=== PATIENT | male | born 1960 | race Caucasian/White ===

== ENCOUNTER 2024-05-26 23:41 | Inpatient (IN) | payer SELFPAY ==
[~2024-05-26] VITALS: Ht 170.2 cm; Wt 77.1 kg
[2024-05-27] VITALS (26 sets, daily range): BP systolic 40–70; BP diastolic 19–45; TEMP 92.2–95.5; O2SAT 86–100
[2024-05-27] MEDS ORDERED: CEFTRIAXONE /D5W 50ML IVPB **ER PYXIS IV ONE (00:08)
[2024-05-27] MEDS: ONDANSETRON 4 MG/2 ML VIAL IV ONE (00:08)
[2024-05-27] MEDS ORDERED: PANTOPRAZOLE SODIUM 40 MG VIAL ONE (00:08)
[2024-05-27] MEDS ORDERED: ONDANSETRON 4 MG/2 ML VIAL ONE (00:08)
[2024-05-27] MEDS: CEFTRIAXONE 1 G in IV DEXTROSE 5% 50 ML IV ONE (00:08)
[2024-05-27] MEDS: IV NORMAL SALINE 1000 ML BAG IV ONE (00:08)
[2024-05-27] MEDS: PANTOPRAZOLE SODIUM 40 MG VIAL IV ONE (00:08)
[2024-05-27] MEDS ORDERED: OCTREOTIDE ACETATE 50 MCG/1 ML ML ONE (00:09)
[2024-05-27 00:19] LABS: BASOPHILS % (AUTO) 0.4 % (0.0-2.0); EOSINOPHILS % (AUTO) 0.1 % (0.0-7.0); LYMPHOCYTES # (AUTO) 1.2 K/uL (0.8-4.8); LYMPHOCYTES % (AUTO) 10.2 % (20.5-51.5); MEAN CORPUSCULAR HEMOGLOBIN 43.6 uug (23.8-33.4); MEAN CORPUSCULAR HGB CONC 32 g/dL (32.5-36.3); MEAN CORPUSCULAR VOLUME 137.6 fL (73.0-96.2); MONOCYTES # (AUTO) 1.1 K/uL (0.1-1.30); MONOCYTES % (AUTO) 9.5 % (0.0-11.0); NEUTROPHILS # (AUTO) 9.6 K/uL (1.8-8.9); NEUTROPHILS % (AUTO) 79.8 % (38.5-71.5); PLATELET COUNT (AUTO) 102 K/uL (152-348); RED CELL DISTRIBUTION WIDTH 22.2 % (12.1-16.2)
[2024-05-27 00:34] LABS: ALANINE AMINOTRANSFERASE 47 U/L (16-63); ALBUMIN 1.8 g/dL (3.4-5.0); ALKALINE PHOSPHATASE 142 U/L (50-136); ASPARTATE AMINOTRANSFERASE 150 U/L (15-37); BILIRUBIN,DIRECT 2.6 mg/dL (0.0-0.2); BILIRUBIN,TOTAL 3.8 mg/dL (0.2-1.0); CALCIUM 7.5 mg/dL (8.5-10.1); CARBON DIOXIDE 10 mmol/L (21-32); CHLORIDE 84 mmol/L (98-107); CREATININE 1.1 mg/dL (0.6-1.3); GLUCOSE 89 mg/dL (74-106); POTASSIUM 3.6 mmol/L (3.5-5.1); SODIUM SERUM 125 mmol/L (136-145); UREA NITROGEN, BLOOD 18 mg/dL (7-18)
[2024-05-27] MEDS ORDERED: THIAMINE HCL 200 MG/2 ML VIAL ONE (00:39)
[2024-05-27] MEDS: THIAMINE HCL 200 MG/2 ML VIAL IV ONE (00:41)
[2024-05-27] MEDS: OCTREOTIDE ACETATE 50 MCG/1 ML ML IV ONE (00:42)
[2024-05-27 00:53] LABS: MAGNESIUM 2.2 mg/dL (1.8-2.4)
[2024-05-27 01:00] LABS: LACTIC ACID 20.6 mmol/L (0.4-2.0)
[2024-05-27] MEDS ORDERED: ETOMIDATE 20 MG/10 ML VIAL ONE (01:01)
[2024-05-27] MEDS ORDERED: NOREPINEPHRINE 8MG/NS 250ML 250 ML IV ONE ×6 (01:17→08:18)
[2024-05-27] MEDS ORDERED: PROPOFOL 100 ML ONE (01:18)
[2024-05-27] MEDS: PROPOFOL 100 ML IV PRN (01:23)
[2024-05-27] MEDS: ETOMIDATE 20 MG/10 ML VIAL IV ONE (01:30)
[2024-05-27] MEDS: NOREPINEPHRINE 8MG/NS 250ML 250 ML IV PRN (01:33)
[2024-05-27 01:45] LABS: LIPASE 195 U/L (16-77)
[2024-05-27 02:43] LABS: ABG BASE EXCESS -23.9 mmol/L (-2.0-3.0); ABG HCO3 6.4 mmol/L (21.0-28.0); ABG PCO2 35.8 mmHg (35.0-48.0); ABG PH 6.868 (7.350-7.450); ABG PO2 131.6 mmHg (83.0-108.0); ABG SITE LEFT FEMORAL; ABG TOTAL HEMOGLOBIN < 4.9 G/dL (13.5-17.5); AaDO2 95.6 mmHg; COHb 0.3 % (0.5-1.5); MetHb 0.9 % (0.0-1.5); O2Hb 93.6 % (94.0-98.0); VT, ABG 500 mL
[2024-05-27] MEDS ORDERED: SODIUM BICARBONATE 8.4% 50 MEQ/50 ML DISP.SYRIN IV ONE ×2 (03:06→03:18)
[2024-05-27] MEDS: SODIUM BICARBONATE 8.4% 50 MEQ/50 ML DISP.SYRIN IV ONE (03:07)
[2024-05-27] MEDS: SODIUM BICARBONATE 8.4% 50 MEQ/50 ML VIAL IV ONE (03:07)
[2024-05-27 03:09] LABS: RED BLOOD CELL COUNT(AUTO) 0.86 MIL/uL (4.06-5.63)
[2024-05-27 03:10] LABS: DIFFERENTIAL COMMENT 1; HEMATOCRIT 11.8 % (36.7-47.1); HEMOGLOBIN 3.8 g/dL (12.5-16.3)
[2024-05-27] MEDS ORDERED: DEXTROSE IV ONE (03:21)
[2024-05-27] MEDS ORDERED: [UNRECOGNIZED DRUG - OTHER] IV ONE (03:21)
[2024-05-27] MEDS: POTASSIUM CHLORIDE 20 MEQ in IV D5W 1000ML 1,000 ML IV ONE (03:22)
[2024-05-27] MEDS ORDERED: IV DEXTROSE 5% +20 MEQ KCL 1,000 ML IV ONE (03:22)
[2024-05-27 03:39] LABS: BAND % (MANUAL) 8 % (0-10); EOSINOPHILS % (MANUAL) 1 % (0-8); LYMPHOCYTES % (MANUAL) 14 % (20-40); MONOCYTES % (MANUAL) 6 % (2-10); NEUTROPHILS % (MANUAL) 71 % (42-75)
[2024-05-27] MEDS ORDERED: LORAZEPAM 2 MG/1 ML VIAL ONE (03:41)
[2024-05-27] MEDS: LORAZEPAM 2 MG/1 ML VIAL IV ONE (03:52)
[2024-05-27] MEDS ORDERED: PHENYLEPHRINE 10 MG/1 ML VIAL ONE ×2 (05:45→05:58)
[2024-05-27] MEDS ORDERED: VASOPRESSIN 20 UNIT/ML VIAL ONE ×2 (05:45→05:50)
[2024-05-27] MEDS: NORMAL SALINE IV PRN (06:00)
[2024-05-27] MEDS: PHENYLEPHRINE IV 50 MG in IV NORMAL SALINE 245 ML IV PRN (06:00)
[2024-05-27] MEDS: VASOPRESSIN IV PRN (06:00)
[2024-05-27] MEDS: PHENYLEPHRINE IV 20 MG in IV DEXTROSE 5% 250 ML IV ONE ×3 (06:00)
[2024-05-27] MEDS ORDERED: PANTOPRAZOLE SODIUM IV 40 MG in IV DEXTROSE 5% 100 ML IV SCH (06:30)
[2024-05-27] MEDS ORDERED: ACETAMINOPHEN 650 MG SUPP.RECT RC PRN (06:30)
[2024-05-27] MEDS ORDERED: ONDANSETRON 4 MG/2 ML VIAL IV PRN (06:30)
[2024-05-27] MEDS ORDERED: OCTREOTIDE ACETATE DRIP 1,250 MCG in IV NORMAL SALINE 250 ML IV ONE (06:30)
[2024-05-27 08:16] LABS: HEMATOCRIT 14.1 % (36.7-47.1); HEMOGLOBIN 4.4 g/dL (12.5-16.3)
[2024-05-27 08:27] LABS: CALCIUM 6.5 mg/dL (8.5-10.1); CREATININE 1.2 mg/dL (0.6-1.3); POTASSIUM 5.2 mmol/L (3.5-5.1)
[2024-05-27] MEDS ORDERED: PHENYLEPHRINE IV 100 MG in IV NORMAL SALINE 240 ML IV PRN (08:45)
[2024-05-27] MEDS: PIPERACILLIN SODIUM/TAZOBACTAM 3.375 G in IV DEXTROSE 5% 100 ML IV SCH (08:53)
[2024-05-27] MEDS: PANTOPRAZOLE SODIUM IV 40 MG in IV DEXTROSE 5% 100 ML IV SCH (10:01)
[2024-05-27] MEDS: OCTREOTIDE ACETATE DRIP 500 MCG in IV NORMAL SALINE 99 ML IV SCH (10:14)
[2024-05-27] MEDS: SODIUM BICARBONATE 8.4% 150 MEQ in IV D5 1/2 NS 1000 ML 1,000 ML IV PRN (11:04)
[2024-05-27 11:06] LABS: ABG HCO3 4.6 mmol/L (21.0-28.0); ABG PH 6.808 (7.350-7.450); ABG PO2 107.4 mmHg (83.0-108.0); ABG SITE RIGHT RADIAL; ABG TOTAL HEMOGLOBIN 5.2 G/dL (13.5-17.5); AaDO2 91.3 mmHg; COHb 0.1 % (0.5-1.5); MetHb 0.8 % (0.0-1.5); O2Hb 92.8 % (94.0-98.0); VT, ABG 550 mL
[2024-05-27] MEDS ORDERED: VASOPRESSIN 40 UNIT in IV NORMAL SALINE 40 ML IV PRN (11:15)
[2024-05-27] MEDS: NOREPINEPHRINE BITARTRATE 32 MG in IV NORMAL SALINE 218 ML IV PRN (11:39)
[2024-05-27] MEDS ORDERED: PIPERACILLIN SODIUM/TAZOBACTAM 3.375 G in IV DEXTROSE 5% 50 ML IV SCH (12:00)
[2024-05-27 15:42] LABS: CALCIUM 6.1 mg/dL (8.5-10.1); CREATININE 1.4 mg/dL (0.6-1.3); POTASSIUM 5.7 mmol/L (3.5-5.1)
[2024-05-27 16:19] LABS: HEMATOCRIT 23.1 % (36.7-47.1)
[2024-05-27 16:25] LABS: HEMOGLOBIN 6.6 g/dL (12.5-16.3)
[2024-05-27 18:46] LABS: HEMOGLOBIN 6.8 g/dL (12.5-16.3)
== END 2024-05-27 20:55 | DRG 377 ==
LOC: ER 23:47 → TRANSITION 05-27 04:45
PROVIDERS: ADMIT Nurse Practitioner Acute Care; ATTEND Student in an Organized Health Care Education/Training Program
PROC: 5A1935Z Respiratory Ventilation, Less than 24 Consecutive Hours (ICD-10-PCS; principal; 2024-05-27)
PROC: 0BH17EZ Insertion of Endotracheal Airway into Trachea, Via Natural or Artificial Opening (ICD-10-PCS; 2024-05-27)
PROC: 06HY33Z Insertion of Infusion Device into Lower Vein, Percutaneous Approach (ICD-10-PCS; 2024-05-27)
PROC: 5A12012 Performance of Cardiac Output, Single, Manual (ICD-10-PCS; 2024-05-27)
PROC: 30233K1 Transfusion of Nonautologous Frozen Plasma into Peripheral Vein, Percutaneous Approach (ICD-10-PCS; 2024-05-27)
PROC: 30233N1 Transfusion of Nonautologous Red Blood Cells into Peripheral Vein, Percutaneous Approach (ICD-10-PCS; 2024-05-27)
DX: K92.2 Gastrointestinal hemorrhage, unspecified (principal); E43 Unspecified severe protein-calorie malnutrition; G93.41 Metabolic encephalopathy; J96.02 Acute respiratory failure with hypercapnia; J96.01 Acute respiratory failure with hypoxia; K85.90 Acute pancreatitis without necrosis or infection, unspecified; J69.0 Pneumonitis due to inhalation of food and vomit; D62 Acute posthemorrhagic anemia; E87.20 Acidosis, unspecified; E87.1 Hypo-osmolality and hyponatremia; D68.9 Coagulation defect, unspecified; R57.1 Hypovolemic shock; K70.30 Alcoholic cirrhosis of liver without ascites; F10.229 Alcohol dependence with intoxication, unspecified; Y90.6 Blood alcohol level of 120-199 mg/100 ml; E87.5 Hyperkalemia; D69.6 Thrombocytopenia, unspecified; G89.29 Other chronic pain
CPT/HCPCS: 36415; 36556; 36600; 70030-TC; 71045; 83605; 83690; 83735; 84484; 85018; 85025; 85610; 86850; 86900; 86901; 86920; 87040; 92950; 94002; 94760; A4606; A4663; G0378; G0480; J0696; J2060; J2354; J2405; J2470; J2543; J3411; J3480; J3490; J7040; J7050; J7060; J7070; P9016; P9059